=== PATIENT | male | born 1960 | race Caucasian/White ===

== ENCOUNTER 2017-05-28 23:03 | Emergency (ER) | payer OTHER ==
--- NOTE | 2017-05-28 23:22 | EDPHY ---
H & P Time Seen by Provider: 05/28/17 23:14 HPI/ROS: CHIEF COMPLAINT: Back pain HISTORY OF PRESENT ILLNESS: 56-year-old male presents to the emergency department by private vehicle with left low back pain. The patient had rather abrupt onset approximately 1 hour prior to arrival. He has no radiation of pain. He has pain in his low back which is independent of movement. He has never had pain like this in the past. No reported trauma. No chest pain or difficulty breathing. No urinary symptoms. He does note that when he had the onset of pain that he felt like he had to urinate. He denies hematuria. No other abdominal pain or pain in his groin. No previous history of kidney stones. REVIEW OF SYSTEMS: Constitutional: No fever, no chills. Eyes: No double or blurry vision. ENT: No sore throat. Respiratory: No cough, no shortness of breath. Cardiac: No chest pain. Gastrointestinal: No abdominal pain, vomiting or diarrhea. Genitourinary: No dysuria. Musculoskeletal: Back pain as above. No neck pain. Skin: No rashes. Neurological: No headache. Past Medical/Surgical History: Hernia repair Social History: Smoking Status: Never smoked Physical Exam: General Appearance: Alert, mild distress. Afebrile. Eyes: Pupils equal and round. Extraocular motions are all intact. ENT: Mouth: Mucous membranes moist. Respiratory: No wheezing, rhonchi, or rales, lungs are clear to auscultation. Cardiovascular: Regular rate and rhythm. Gastrointestinal: Abdomen is soft and nontender, no masses, no rebound or guarding, bowel sounds normal. Mild CVA tenderness on the left, none on the right. Neurological: Alert and oriented x 3, cranial nerves II through XII grossly intact Skin: Warm and dry, no rashes. Musculoskeletal: Nontender to palpate along the cervical, thoracic or lumbar spine. Neck is supple. Extremities: Full range of motion and no peripheral edema. Psychiatric: Patient is oriented X 3, there is no agitation. Constitutional: Initial Vital Signs Temperature (C) 36.3 C 05/28/17 23:05 Heart Rate 60 05/28/17 23:05 Respiratory Rate 20 05/28/17 23:05 Blood Pressure 172/93 H 05/28/17 23:05 O2 Sat (%) 100 05/28/17 23:05 O2 Delivery Mode Room Air Allergies/Adverse Reactions: No Known Allergies Allergy (Unverified 05/28/17 23:05) Home Medications: Medication Instructions Recorded Tamsulosin HCl [Flomax] 0.4 mg PO DAILY #10 cap 05/29/17 Medical Decision Making - Diagnostics Imaging: Discussed imaging studies w/ physically impaired teacher Radiologist ED Course/Re-evaluation: 56-year-old male presents with left flank pain. I was concerned about possible kidney stone. Urinalysis laboratory studies are pending. Noncontrast CT scan of the abdomen and pelvis was ordered and is pending. 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 He had multiple stones in both kidneys. This was reported to me by Dr. Jimmy Lou. The patient was given 30 mg of IV Toradol as well as IV normal saline. He was given oral Flomax. The case was discussed with Dr. Evelio Soriano, secondary supervising physician , who agrees with treatment and plan. Urinalysis is still pending. Case will be turned over to Dr. Evelio Soriano. The patient would like to be discharged home. I explained to the patient that if his pain was controlled he could be discharged with close follow-up with a urologist. Differential Diagnosis: Back pain including but not limited to muscular pain, herniated disc, spine fracture, intra-abdominal causes and urinary tract infection. - Data Points Laboratory Results: Laboratory Results 05/28/17 23:55 05/28/17 23:55 Medications Given: Discontinued Medications Sodium Chloride (Ns) 1,000 mls @ 0 mls/hr IV ONCE ONE PRN Reason: Wide Open Stop: 05/29/17 00:17 Last Admin: 05/29/17 00:22 Dose: 1,000 mls Ketorolac Tromethamine (Toradol) 30 mg IVP EDNOW ONE Stop: 05/29/17 00:36 Last Admin: 05/29/17 00:39 Dose: 30 mg Tamsulosin HCl (Flomax) 0.4 mg PO EDNOW ONE Stop: 05/29/17 00:31 Last Admin: 05/29/17 00:40 Dose: 0.4 mg Departure - Departure Disposition: Home, Routine, Self-Care Clinical Impression: Kidney stone Condition: Good Instructions: Kidney Stones (ED) Additional Instructions: Return to the emergency department if you develop fever, unable to urinate, severe pain, vomiting, or if you feel worse in any way. Flomax daily until the stone passes. Strainer urine daily. Follow up with urologist as discussed. Referrals: Cindi Coburn MD [Medical Doctor] - As per Instructions (Urologist on-call) Prescriptions: Tamsulosin HCl [Flomax] 0.4 mg PO DAILY #10 cap
[2017-05-28 23:26] VITALS: RESP 18
[2017-05-29] MEDS ORDERED: NS 1,000 ML IV ONE (00:16)
[2017-05-29 00:25] LABS: % IMMATURE GRANULYOCYTES 0.3 % (0.0-1.1); ABSOLUTE IMMATURE GRANULOCYTES 0.04 10^3/uL (0.00-0.10); ADD DIFF? NO; ADD MORPH? NO; ADD SCAN? NO; ATYPICAL LYMPHOCYTE FLAG 10 (0-99); FRAGMENT RBC FLAG 0 (0-99); HEMATOCRIT 47.3 % (40.0-51.0); LEFT SHIFT FLG 0 (0-99); LIPEMIA HEMOLYSIS FLAG 90 (0-99); MEAN CELL HEMOGLOBIN 28.2 pg (27.9-34.1); MEAN CELL HEMOGLOBIN CONCENTR. 33.8 g/dL (32.4-36.7); MEAN CELL VOLUME 83.3 fL (81.5-99.8); MEAN PLATELET VOLUME 9.5 fL (8.7-11.7); PLATELET CLUMPS FLAG 0 (0-99); PLATELET COUNT 290 10^3/uL (150-400); RED BLOOD CELL COUNT 5.68 10^6/uL (4.40-6.38)
[2017-05-29 00:30] LABS: ANION GAP 14 mEq/L (8-16); CALCIUM 9.4 mg/dL (8.5-10.4); CARBON DIOXIDE 22 mEq/l (22-31); CHLORIDE 107 mEq/L (97-110); CREATININE 1.2 mg/dL (0.7-1.3); GLOMERULAR FILTRATION RATE > 60; GLUCOSE 113 mg/dL (70-100); POTASSIUM 4.3 mEq/L (3.5-5.2); SODIUM 143 mEq/L (134-144)
[2017-05-29] MEDS ORDERED: TAMSULOSIN HCL 0.4 MG CAP PO ONE (00:30)
[2017-05-29] MEDS ORDERED: KETOROLAC 30 MG/1 ML SDV IVP ONE (00:35)
[2017-05-29 01:02] VITALS: BP 131/74; PULSE 63; TEMP 98.6; O2SAT 99
[2017-05-29 01:23] LABS: COLOR YELLOW; LEUKOCYTE ESTERASE,URINE NEGATIVE (NEGATIVE); NITRITE,URINE NEGATIVE (NEGATIVE)
[2017-05-29 01:32] LABS: MUCUS TRACE /lpf (NONE-1+); RBC,URINE 50-182 /hpf (0-3)
== END 2017-05-29 01:03 | disposition home or self-care (01) ==
DX: N20.0 Calculus of kidney (principal)
CPT/HCPCS: 96374; J1885

== ENCOUNTER → 2017-06-04 | Outpatient (CLI) | payer OTHER | LOC: FIMAGING 10:36 | PROVIDERS: ATTEND Specialist | DX: N20.0 Calculus of kidney (principal) ==

== ENCOUNTER → 2018-08-11 | Outpatient (CLI) | payer OTHER | LOC: FIMAGING 10:58 | PROVIDERS: ATTEND Specialist | DX: N20.0 Calculus of kidney (principal) ==